=== PATIENT | male | born 1960 | race Two or more races ===

== ENCOUNTER 2017-03-19 20:12 | Inpatient (IN) | payer MEDICARE ==
[~2017-03-19] VITALS: Ht 160 cm; Wt 70.0 kg
[2017-03-19] MEDS ORDERED: ONDANSETRON HCL 4 MG/2 ML VIAL IV ONE (21:30)
[2017-03-19] MEDS ORDERED: SODIUM CHLORIDE 0.9% 1,000 ML IV ONE (21:30)
[2017-03-19] MEDS ORDERED: HYDROmorphone HCL 2 MG/ML VL IV ONE (21:30)
[2017-03-19 22:15] LABS: Basophils # (auto) 0 uL; Basophils % (auto) 0.4 % (0.0-2.0); Eosinophils # (auto) 0.2 uL; Eosinophils % (auto) 2.9 % (0.0-7.0); Hematocrit 33.7 % (41.0-53.0); Hemoglobin 11.3 g/dL (13.5-17.5); Lymphocytes # (auto) 1.4 uL; Lymphocytes % (auto) 19.6 % (10.0-50.0); Mean Corpuscular Hemoglobin 30.3 pg (28.0-32.0); Mean Corpuscular Hgb Conc. 33.5 g/dL (32.0-36.0); Mean Corpuscular Volume 90.6 fL (80.0-100.0); Mean Platelet Volume 7.8 fL (7.4-10.4); Monocytes # (auto) 0.5 uL; Monocytes % (auto) 7.2 % (0.0-12.0); Neutrophils % (auto) 69.9 % (37.0-80.0); Platelet Count (auto) 246 10^3/uL (140-450); Red Cell Distribution Width 13.4 % (11.6-16.0); White Blood Cell 7.1 10^3/uL (4.4-10.8)
[2017-03-19 22:29] LABS: Albumin 3.5 g/dL (3.4-5.0); BUN/Creatinine Ratio 7.2; Bilirubin, Total 0.2 mg/dL (0.2-1.0); Calcium 7.8 mg/dL (8.5-10.1); Potassium 4.3 mmol/L (3.5-5.1); Total Protein 7.6 g/dL (6.4-8.2)
[2017-03-19 22:43] LABS: INR 0.98 (0.9-1.15); Partial Thromboplastin Time 28.1 sec (22.64-33.71); Prothrombin Time 10.7 sec (9.37-12.3)
[2017-03-20] MEDS ORDERED: SODIUM CHLORIDE 0.9% 1,000 ML IV SCH (05:06)
[2017-03-20] MEDS ORDERED: MORPHINE SULF INJ 2 MG/ML SYRINGE 1ML IV PRN (05:15)
[2017-03-20] MEDS ORDERED: ACETAMINOPHEN 325 MG TAB PO PRN (05:15)
[2017-03-20] MEDS ORDERED: ONDANSETRON HCL 4 MG/2 ML VIAL IV PRN (05:15)
[2017-03-20] MEDS: SODIUM CHLOR 0.9% PF (SALINE LOCK) 10ML VIAL IV SCH ×3 (06:04→21:29)
[2017-03-20 06:20] VITALS: BP 154/79
[2017-03-20] MEDS ORDERED: PANT1INJ3 PO (07:42)
[2017-03-20] MEDS ORDERED: FURO80TA3 PO (07:42)
[2017-03-20] MEDS ORDERED: ATOR40TA52 PO (07:42)
[2017-03-20] MEDS ORDERED: ASPI81TA27 PO (07:42)
[2017-03-20] MEDS ORDERED: SEVE800T8 PO (07:42)
[2017-03-20] MEDS ORDERED: INSLISPI SC (07:42)
[2017-03-20] MEDS ORDERED: HYDR-2652 PO (07:42)
[2017-03-20] MEDS ORDERED: NIFE60TA59 PO (07:42)
[2017-03-20] MEDS ORDERED: DEXTROSE (50%) 50ML SYRG IV PRN (07:45)
[2017-03-20 08:00] VITALS: BP 151/71
[2017-03-20 09:00] VITALS: BP_SYST 151; BP_SYST 193; BP_DIAS 71; BP_DIAS 78
[2017-03-20] MEDS: MULTIPLE VITAMIN TAB PO SCH (09:53)
[2017-03-20] MEDS: FAMOTIDINE 20 MG TAB PO SCH ×2 (09:53→21:28)
[2017-03-20] MEDS: InsuLIN REG 1unit/0.01ml Soln (100units/ml) SC SCH ×3 (11:30→21:29)
[2017-03-20] MEDS: ACCU-CHEK COMFORT CURVE STRIP VI SCH ×3 (11:30→21:29)
[2017-03-20 13:00] VITALS: BP 126/59
[2017-03-20 16:02] LABS: Urine Bilirubin Negative (Negative); Urine Blood TRACE /uL (Negative); Urine Color Yellow (Yellow); Urine Hyaline Cast FEW /lpf (0 - 2); Urine Ketone Negative (Negative); Urine Nitrite Negative (Negative); Urine RBC 5 /hpf (0 - 3); Urine Squamous Epithelial Cell FEW /hpf (<5); Urine Urobilinogen Normal (Negative); Urine pH 7.5 (5.0-8.0)
[2017-03-20 16:13] LABS: Urine Glucose 3+ mg/dL (Normal)
[2017-03-20] MEDS: GABAPENTIN 100 MG CAP PO SCH (21:28)
[2017-03-20 22:32] VITALS: BP 172/73
[2017-03-21 05:17] VITALS: BP_SYST 109; BP_SYST 178; BP_DIAS 60; BP_DIAS 79
[2017-03-21 06:04] LABS: Basophils # (auto) 0 uL; Basophils % (auto) 0.5 % (0.0-2.0); Eosinophils # (auto) 0.3 uL; Eosinophils % (auto) 4.1 % (0.0-7.0); Hemoglobin 11.5 g/dL (13.5-17.5); Lymphocytes # (auto) 1.5 uL; Lymphocytes % (auto) 21.6 % (10.0-50.0); Mean Corpuscular Hemoglobin 30.6 pg (28.0-32.0); Mean Corpuscular Hgb Conc. 33.9 g/dL (32.0-36.0); Mean Corpuscular Volume 90.3 fL (80.0-100.0); Mean Platelet Volume 7.7 fL (7.4-10.4); Monocytes # (auto) 0.5 uL; Monocytes % (auto) 6.3 % (0.0-12.0); Neutrophils # (auto) 4.8 uL; Neutrophils % (auto) 67.5 % (37.0-80.0); Platelet Count (auto) 249 10^3/uL (140-450); Red Cell Distribution Width 12.9 % (11.6-16.0); White Blood Cell 7.2 10^3/uL (4.4-10.8)
[2017-03-21] MEDS: InsuLIN REG 1unit/0.01ml Soln (100units/ml) SC SCH ×4 (06:06→21:45)
[2017-03-21] MEDS: ACCU-CHEK COMFORT CURVE STRIP VI SCH ×4 (06:06→21:45)
[2017-03-21] MEDS: GABAPENTIN 100 MG CAP PO SCH (06:07)
[2017-03-21] MEDS: SODIUM CHLOR 0.9% PF (SALINE LOCK) 10ML VIAL IV SCH ×3 (06:07→21:45)
[2017-03-21 06:21] LABS: INR 0.98 (0.9-1.15); Prothrombin Time 10.7 sec (9.37-12.3)
[2017-03-21 06:26] LABS: Albumin 2.9 g/dL (3.4-5.0); Calcium 7.7 mg/dL (8.5-10.1); Magnesium 2.4 mg/dL (1.6-2.6)
[2017-03-21 06:30] LABS: BUN/Creatinine Ratio 7.9
[2017-03-21 06:31] LABS: Bilirubin, Total 0.3 mg/dL (0.2-1.0); Total Protein 6.9 g/dL (6.4-8.2)
[2017-03-21 08:02] VITALS: BP 181/87
[2017-03-21] MEDS: MULTIPLE VITAMIN TAB PO SCH (10:56)
[2017-03-21] MEDS: FAMOTIDINE 20 MG TAB PO SCH (10:56)
[2017-03-21 13:00] VITALS: BP 161/99
[2017-03-21] MEDS ORDERED: hydrALAZINE HCL 25 MG TAB PO ONE (13:15)
[2017-03-21] MEDS ORDERED: NIFEdipine ER 30 MG TAB PO ONE (13:15)
[2017-03-21] MEDS ORDERED: GAB100C PO (13:20)
[2017-03-21 17:00] VITALS: BP 185/84
[2017-03-21] MEDS ORDERED: GABAPENTIN 300 MG CAP PO SCH (18:00)
[2017-03-21 20:00] VITALS: BP 152/78
[2017-03-21 22:00] VITALS: BP 152/78
[2017-03-21] MEDS: hydrALAZINE HCL 25 MG TAB PO SCH (22:02)
[2017-03-22 05:20] VITALS: BP 106/63
[2017-03-22] MEDS: SODIUM CHLOR 0.9% PF (SALINE LOCK) 10ML VIAL IV SCH ×2 (05:54→14:00)
[2017-03-22] MEDS: InsuLIN REG 1unit/0.01ml Soln (100units/ml) SC SCH ×2 (06:43→12:01)
[2017-03-22] MEDS: ACCU-CHEK COMFORT CURVE STRIP VI SCH ×2 (06:43→11:30)
[2017-03-22 08:37] VITALS: BP 124/63
[2017-03-22] MEDS ORDERED: NIFEdipine ER 30 MG TAB PO SCH (10:00)
[2017-03-22] MEDS: MULTIPLE VITAMIN TAB PO SCH (10:00)
[2017-03-22] MEDS ORDERED: FAMOTIDINE 20 MG TAB PO SCH (10:00)
[2017-03-22] MEDS ORDERED: SODIUM CHL 0.9% 1000 ML BAG XX ONE (10:00)
[2017-03-22] MEDS: hydrALAZINE HCL 25 MG TAB PO SCH (10:00)
[2017-03-22 13:06] VITALS: BP 100/63
[2017-03-22 13:28] VITALS: BP 95/54
[2017-03-22 15:34] VITALS: BP 117/75
== END 2017-03-22 16:26 | disposition home or self-care (01) | DRG 102 ==
LOC: ER 20:27 → TELE 20:28 → TELE-WESTW 03-20 06:20
PROVIDERS: ADMIT Emergency Medicine; ATTEND Internal Medicine
DX: G44.89 Other headache syndrome (principal); N18.6 End stage renal disease; I12.0 Hypertensive chronic kidney disease with stage 5 chronic kidney disease or end stage renal disease; E11.40 Type 2 diabetes mellitus with diabetic neuropathy, unspecified; R53.1 Weakness; E78.5 Hyperlipidemia, unspecified; G62.9 Polyneuropathy, unspecified; E11.22 Type 2 diabetes mellitus with diabetic chronic kidney disease; Z99.2 Dependence on renal dialysis; Z79.899 Other long term (current) drug therapy; Y92.89 Other specified places as the place of occurrence of the external cause; Z98.41 Cataract extraction status, right eye; Z98.42 Cataract extraction status, left eye
CPT/HCPCS: 36415; 70450; 70551; 80053; 81001; 82962; 83690; 83735; 85025; 85610; 85730; 87040; 87086; 90935; 93005; 96361; 96374; 96375; J1815; J2405

== ENCOUNTER 2017-03-26 02:35 | Emergency (ER) | payer MEDICARE ==
[~2017-03-26] VITALS: Ht 160 cm; Wt 70.3 kg
[~2017-03-26 02:35] MED LIST: ASPI81TA27 PO; ATOR40TA52 PO; FURO80TA3 PO; GAB100C PO; HYDR-2652 PO; INSLISPI SC; NIFE60TA59 PO; PANT1INJ3 PO; SEVE800T8 PO
[2017-03-26] MEDS ORDERED: HYDROmorphone HCL 2 MG/ML VL IV ONE (03:45)
[2017-03-26] MEDS ORDERED: ONDANSETRON HCL 4 MG/2 ML VIAL IV ONE (03:45)
[2017-03-26 03:48] LABS: Basophils # (auto) 0 uL; Basophils % (auto) 0.2 % (0.0-2.0); Eosinophils # (auto) 0 uL; Eosinophils % (auto) 0.3 % (0.0-7.0); Hematocrit 33.5 % (41.0-53.0); Hemoglobin 11.3 g/dL (13.5-17.5); Lymphocytes # (auto) 1.3 uL; Lymphocytes % (auto) 15.2 % (10.0-50.0); Mean Corpuscular Hemoglobin 30.4 pg (28.0-32.0); Mean Corpuscular Hgb Conc. 33.7 g/dL (32.0-36.0); Mean Corpuscular Volume 90.2 fL (80.0-100.0); Mean Platelet Volume 7.7 fL (7.4-10.4); Monocytes # (auto) 0.3 uL; Monocytes % (auto) 3.5 % (0.0-12.0); Neutrophils # (auto) 6.7 uL; Neutrophils % (auto) 80.8 % (37.0-80.0); Platelet Count (auto) 257 10^3/uL (140-450); Red Cell Distribution Width 13.6 % (11.6-16.0); White Blood Cell 8.3 10^3/uL (4.4-10.8)
[2017-03-26 04:18] LABS: Albumin 3.8 g/dL (3.4-5.0); BUN/Creatinine Ratio 6.7; Bilirubin, Total 0.3 mg/dL (0.2-1.0); Calcium 8.2 mg/dL (8.5-10.1); Potassium 3.7 mmol/L (3.5-5.1); Total Protein 8.3 g/dL (6.4-8.2)
[2017-03-26 10:19] VITALS: BP 137/74
== END 2017-03-26 12:05 | disposition home or self-care (01) ==
LOC: ER 02:36
DX: E11.319 Type 2 diabetes mellitus with unspecified diabetic retinopathy without macular edema (principal); E11.22 Type 2 diabetes mellitus with diabetic chronic kidney disease; I12.0 Hypertensive chronic kidney disease with stage 5 chronic kidney disease or end stage renal disease; N18.6 End stage renal disease; Z79.899 Other long term (current) drug therapy; Z79.82 Long term (current) use of aspirin; Z79.4 Long term (current) use of insulin; R51 Headache
CPT/HCPCS: 36415; 70450; 70480; 80053; 85025; 93005; 96374; 96375; 99285; J1170; J2405

== ENCOUNTER 2017-05-21 10:40 | Emergency (ER) | payer MEDICARE, MEDICAID ==
[~2017-05-21] VITALS: Ht 165.1 cm; Wt 70.3 kg
[2017-05-21 11:38] LABS: Basophils # (auto) 0 uL; Basophils % (auto) 0.3 % (0.0-2.0); CONDITION Y; Eosinophils # (auto) 0.1 uL; Hematocrit 38.9 % (41.0-53.0); Lymphocytes # (auto) 1.4 uL; Lymphocytes % (auto) 19.9 % (10.0-50.0); Mean Corpuscular Hemoglobin 31.7 pg (28.0-32.0); Mean Corpuscular Hgb Conc. 33.4 g/dL (32.0-36.0); Mean Platelet Volume 7.7 fL (7.4-10.4); Monocytes # (auto) 0.5 uL; Monocytes % (auto) 6.7 % (0.0-12.0); Neutrophils # (auto) 4.8 uL; Neutrophils % (auto) 71.1 % (37.0-80.0); Platelet Count (auto) 337 10^3/uL (140-450); Red Cell Distribution Width 16.2 % (11.6-16.0); White Blood Cell 6.8 10^3/uL (4.4-10.8)
[2017-05-21] MEDS ORDERED: ONDANSETRON HCL 4 MG/2 ML VIAL IV ONE (12:00)
[2017-05-21] MEDS ORDERED: HYDROmorphone HCL 2 MG/ML VL IV ONE (12:00)
[2017-05-21 12:11] LABS: Albumin 3.6 g/dL (3.4-5.0); Alkaline Phosphatase 104 U/L (45-117); Anion Gap 10 (5-15); Aspartate Aminotransferase 13 U/L (15-37); BUN/Creatinine Ratio 6.3; Bilirubin, Total 0.3 mg/dL (0.2-1.0); Blood Urea Nitrogen 39 mg/dL (7-18); Calcium 8.6 mg/dL (8.5-10.1); Carbon Dioxide 31 mmol/L (21-32); Chloride 98 mmol/L (98-107); GFR African American 12 mL/min; GFR Non-African American 10 mL/min; Glucose 131 mg/dL (74-106); Potassium 4.3 mmol/L (3.5-5.1); Sodium 139 mmol/L (136-145); Total Protein 7.8 g/dL (6.4-8.2)
[2017-05-21] MEDS ORDERED: LACTULOSE 20Gm/30ML SOLN PO ONE (12:45)
[2017-05-21 14:08] VITALS: BP 115/60
== END 2017-05-21 14:16 | disposition home or self-care (01) ==
LOC: ER 10:40
DX: S16.1XXA Strain of muscle, fascia and tendon at neck level, initial encounter (principal); I12.0 Hypertensive chronic kidney disease with stage 5 chronic kidney disease or end stage renal disease; E11.22 Type 2 diabetes mellitus with diabetic chronic kidney disease; N18.6 End stage renal disease; Z79.4 Long term (current) use of insulin; Z99.2 Dependence on renal dialysis; X58.XXXA Exposure to other specified factors, initial encounter; Y93.89 Activity, other specified; Y99.8 Other external cause status; Y92.89 Other specified places as the place of occurrence of the external cause
CPT/HCPCS: 36415; 80053; 82140; 84484; 85025; 96374; 96375; 99284; J1170; J2405

== ENCOUNTER 2017-12-18 03:19 | Emergency (ER) | payer MEDICARE, MEDICAID ==
[~2017-12-18] VITALS: Ht 160 cm; Wt 68.0 kg
[~2017-12-18 03:19] MED LIST changes: -HYDR-2652 PO; +HYDR50TA15 PO
[2017-12-18 04:24] LABS: Basophils # (auto) 0.1 uL; Basophils % (auto) 1.1 % (0.0-2.0); Eosinophils # (auto) 0.3 uL; Eosinophils % (auto) 4.1 % (0.0-7.0); Hematocrit 39.7 % (41.0-53.0); Hemoglobin 13.4 g/dL (13.5-17.5); Lymphocytes # (auto) 0.7 uL; Mean Corpuscular Hemoglobin 31.2 pg (28.0-32.0); Mean Corpuscular Hgb Conc. 33.8 g/dL (32.0-36.0); Mean Corpuscular Volume 92.3 fL (80.0-100.0); Monocytes # (auto) 0.4 uL; Monocytes % (auto) 5.7 % (0.0-12.0); Neutrophils # (auto) 6.2 uL; Neutrophils % (auto) 80.1 % (37.0-80.0); Nucleated Red Blood Cells % 0.1 %; Platelet Count (auto) 200 10^3/uL (140-450); White Blood Cell 7.7 10^3/uL (4.4-10.8)
[2017-12-18 04:35] LABS: Albumin 3.7 g/dL (3.4-5.0); BUN/Creatinine Ratio 7.6; Bilirubin, Total 0.3 mg/dL (0.2-1.0); Calcium 8.7 mg/dL (8.5-10.1); Potassium 4.9 mmol/L (3.5-5.1); Total Protein 8.5 g/dL (6.4-8.2)
[2017-12-18] MEDS ORDERED: SODIUM CHLORIDE 0.9% 1,000 ML IV ONE (07:54)
[2017-12-18] MEDS ORDERED: MORPHINE SULF INJ 2 MG/ML SYRINGE 1ML IV PRN (08:00)
[2017-12-18] MEDS ORDERED: ONDANSETRON HCL 4 MG/2 ML VIAL IV ONE (08:00)
[2017-12-18] MEDS ORDERED: MORPHINE SULFATE 4 MG/ML SYR/VIAL IV PRN (08:15)
[2017-12-18 11:50] VITALS: BP 153/89
== END 2017-12-18 11:54 | disposition home or self-care (01) ==
LOC: ER 03:19
DX: J40 Bronchitis, not specified as acute or chronic (principal); J11.1 Influenza due to unidentified influenza virus with other respiratory manifestations; M79.1 Myalgia; I12.0 Hypertensive chronic kidney disease with stage 5 chronic kidney disease or end stage renal disease; N18.6 End stage renal disease; E11.22 Type 2 diabetes mellitus with diabetic chronic kidney disease; Z99.2 Dependence on renal dialysis
CPT/HCPCS: 36415; 71046; 80053; 83735; 84443; 85025; 87804; 93005; 96361; 96374; 96375; 99285; J2270; J2405; J7030

== ENCOUNTER 2018-11-01 12:23 | Inpatient (IN) | payer OTHER, MEDICAID ==
[~2018-11-01] VITALS: Ht 160 cm; Wt 74.6 kg
[2018-11-01] MEDS ORDERED: MORPHINE SULFATE 10 MG/ML INJ 1ML SDV IV ONE (14:15)
[2018-11-01] MEDS ORDERED: cefTRIAXone 1GM/50ML D5W 50 ML IV ONE (14:15)
[2018-11-01] MEDS ORDERED: ONDANSETRON HCL 4 MG/2 ML VIAL IV ONE (14:15)
[2018-11-01] MEDS ORDERED: ASPirin-EC 81 mg tab PO ONE (14:15)
[2018-11-01 14:27] LABS: Basophils # (auto) 0 uL; Basophils % (auto) 0.4 % (0.0-2.0); Eosinophils # (auto) 0 uL; Eosinophils % (auto) 0.4 % (0.0-7.0); Hematocrit 35.4 % (41.0-53.0); Lymphocytes # (auto) 0.7 uL; Lymphocytes % (auto) 8.6 % (10.0-50.0); Mean Corpuscular Hemoglobin 31.1 pg (28.0-32.0); Mean Corpuscular Hgb Conc. 33.9 g/dL (32.0-36.0); Mean Corpuscular Volume 91.9 fL (80.0-100.0); Monocytes # (auto) 0.5 uL; Neutrophils # (auto) 6.4 uL; Neutrophils % (auto) 84.6 % (37.0-80.0); Nucleated Red Blood Cells % 0.1 %; Platelet Count (auto) 290 10^3/uL (140-450); Red Blood Cells 3.85 10^6/uL (4.5-5.90); Red Cell Distribution Width 15.4 % (11.8-14.3); White Blood Cell 7.6 10^3/uL (4.4-10.8)
[2018-11-01 14:51] LABS: Albumin 3.2 g/dL (3.4-5.0); Calcium 8.3 mg/dL (8.5-10.1); Magnesium 2.6 mg/dL (1.6-2.6); Potassium 4.2 mmol/L (3.5-5.1)
[2018-11-01 14:58] LABS: BUN/Creatinine Ratio 7.2; Bilirubin, Total 0.5 mg/dL (0.2-1.0); Total Protein 7.8 g/dL (6.4-8.2)
[2018-11-01] MEDS ORDERED: MORPHINE SULFATE 10 MG/ML INJ 1ML SDV IV PRN ×2 (15:15)
[2018-11-01] MEDS ORDERED: ALBUTEROL SULF 2.5 MG/0.5ML(0.5%) NEB SOLN NEB PRN (15:15)
[2018-11-01] MEDS ORDERED: NITROGLYCERIN 0.4 MG SL TAB SL PRN (15:15)
[2018-11-01] MEDS ORDERED: LACTULOSE 20Gm/30ML SOLN PO PRN (15:15)
[2018-11-01] MEDS ORDERED: HYDROcodone-ACET 5/325MG TAB PO PRN (15:15)
[2018-11-01] MEDS ORDERED: TEMAZEPAM 15 MG CAP PO PRN (15:15)
[2018-11-01] MEDS ORDERED: PROMETHAZINE HCL 25 MG/ML 1ML IV PRN (15:15)
[2018-11-01] MEDS ORDERED: DEXTROSE (50%) 50ML SYRG IV PRN (15:15)
[2018-11-01] MEDS ORDERED: ENOXAPARIN SOD 80 MG/0.8ML SYRINGE SC SCH (15:15)
[2018-11-01] MEDS ORDERED: OSELTAMIVIR 30 MG CAP PO ONE (15:15)
[2018-11-01] MEDS ORDERED: LORazepam 0.5 MG TAB PO PRN (15:15)
[2018-11-01] MEDS ORDERED: ACETAMINOPHEN 500 MG TAB PO PRN (15:15)
[2018-11-01] MEDS ORDERED: ENOXAPARIN SOD 30 MG/0.3 ML SYRINGE SC ONE (15:30)
[2018-11-01 15:44] LABS: INR 0.97 (0.9-1.15); Partial Thromboplastin Time 28.5 sec (23.78-33.04); Prothrombin Time 10.4 sec (9.27-12.13)
[2018-11-01] MEDS: AZITHROMYCIN 500MG/ 250ML 250 ML IV SCH (15:45)
[2018-11-01] MEDS ORDERED: ENOXAPARIN SOD 80 MG/0.8ML SYRINGE SC ONE (15:45)
[2018-11-01 16:06] VITALS: BP 160/83
[2018-11-01] MEDS ORDERED: PATIENTS OWN MEDICATION (Sevelamer Carbonate (Renvela) 1 TAB) PO SCH (17:00)
[2018-11-01] MEDS: InsuLIN REG 1unit/0.01ml Soln (100units/ml) SC SCH ×2 (17:00→21:53)
[2018-11-01] MEDS: ACCU-CHEK COMFORT CURVE STRIP VI SCH ×2 (17:23→21:53)
[2018-11-01] MEDS: FUROSEMIDE 40 MG TAB PO SCH (17:44)
[2018-11-01] MEDS: ALBUTEROL SULF 2.5 MG/0.5ML(0.5%) NEB SOLN NEB SCH ×2 (18:08→23:59)
[2018-11-01] MEDS: hydrALAZINE HCL 25 MG TAB PO SCH (21:52)
[2018-11-01] MEDS: ATORVASTATIN 20 MG TAB PO SCH (21:52)
[2018-11-01] MEDS: GABAPENTIN 100 MG CAP PO SCH (21:53)
[2018-11-01] MEDS: SODIUM CHLOR 0.9% PF (SALINE LOCK) 10ML VIAL/SYR IV SCH (22:00)
[2018-11-01] MEDS ORDERED: METOPROLOL TARTRATE 25 MG TAB PO SCH (22:00)
[2018-11-02] MEDS: FUROSEMIDE 40 MG TAB PO SCH ×2 (06:00→17:10)
[2018-11-02] MEDS: ALBUTEROL SULF 2.5 MG/0.5ML(0.5%) NEB SOLN NEB SCH ×3 (06:00→19:38)
[2018-11-02] MEDS: SODIUM CHLOR 0.9% PF (SALINE LOCK) 10ML VIAL/SYR IV SCH ×3 (06:00→21:30)
[2018-11-02 07:12] LABS: Cholesterol 166 mg/dL (< 200); HDL Cholesterol 43 mg/dL (40-59); LDL Cholesterol 111 mg/dL (< 100); Triglycerides 104 mg/dL (< 150)
[2018-11-02] MEDS: ACCU-CHEK COMFORT CURVE STRIP VI SCH ×4 (07:50→21:48)
[2018-11-02] MEDS: InsuLIN REG 1unit/0.01ml Soln (100units/ml) SC SCH ×4 (07:56→22:11)
[2018-11-02] MEDS ORDERED: ASPirin-EC 81 mg tab PO SCH (10:00)
[2018-11-02] MEDS ORDERED: NITROGLYCERIN 0.2MG/HR TOPICAL PATCH TD SCH (10:00)
[2018-11-02] MEDS ORDERED: ENOXAPARIN SOD 30 MG/0.3 ML SYRINGE SC SCH (10:00)
[2018-11-02] MEDS: ASPirin 81 mg TAB PO SCH (10:00)
[2018-11-02] MEDS ORDERED: ENOXAPARIN SOD 80 MG/0.8ML SYRINGE SC SCH (10:00)
[2018-11-02] MEDS: METOPROLOL SUCCINATE XL 50 MG TAB PO SCH (10:00)
[2018-11-02] MEDS ORDERED: ENALAPRIL MALEATE 10 MG TAB PO SCH (10:00)
[2018-11-02] MEDS ORDERED: NIFEdipine ER 30 MG TAB PO SCH (10:00)
[2018-11-02] MEDS ORDERED: CLOP75TA41 PO (11:20)
[2018-11-02] MEDS ORDERED: NIFE90TA30 PO (11:20)
[2018-11-02] MEDS ORDERED: CALC667T2 PO (11:20)
[2018-11-02] MEDS ORDERED: SEVE800T8 PO (11:20)
[2018-11-02] MEDS ORDERED: LISI-646 PO (11:20)
[2018-11-02] MEDS ORDERED: CAR125T PO (11:20)
[2018-11-02] MEDS ORDERED: LIDOCAINE 2%HCL (LOCAL ANESTH.) INJ 20ML MDV ONE (12:13)
[2018-11-02] MEDS ORDERED: IODIXANOL 320MG/ML 100ML BTL IV ONE (12:13)
[2018-11-02] MEDS ORDERED: fentaNYL CITRATE 100 MCG/2 ML VL ONE (12:14)
[2018-11-02] MEDS ORDERED: MIDAZOLAM HCL 1MG/1ML-2 ML VIAL ONE (12:14)
[2018-11-02] MEDS ORDERED: ANGIOMAX 250 MG VIAL IV ONE (12:14)
[2018-11-02] MEDS ORDERED: SODIUM CHL 0.9% 50 ML ONE (12:15)
[2018-11-02] MEDS ORDERED: CLOPIDOGREL BISULFATE 75 MG TAB ONE (12:55)
[2018-11-02] MEDS ORDERED: ASPirin 81 mg TAB ONE (12:55)
[2018-11-02] MEDS ORDERED: ZOLPIDEM TARTRATE 5 MG TAB PO PRN (13:45)
[2018-11-02] MEDS ORDERED: ONDANSETRON HCL 4 MG/2 ML VIAL IV PRN (13:45)
[2018-11-02] MEDS ORDERED: ACETAMINOPHEN 500 MG TAB PO PRN (13:45)
[2018-11-02] MEDS: PANTOPRAZOLE 40 MG TAB PO SCH (15:18)
[2018-11-02] MEDS: cefTRIAXone 1GM/50ML D5W 50 ML IV SCH (15:18)
[2018-11-02] MEDS: hydrALAZINE HCL 25 MG TAB PO SCH ×2 (15:18→21:48)
[2018-11-02] MEDS: ISOSORBIDE MONONITRATE 60 MG TAB PO SCH (15:19)
[2018-11-02 16:45] VITALS: BP 134/74
--- NOTE | 2018-11-02 16:45 | NUR ---
Telemetry admit from COMMER[employer] ATTORNEY LAURIE CRUMP admitted to Telemetry unit after SBAR received. Patient oriented to Luz Alicia, primary RN, and student mimi Branham, to unit, room, bed, and unit policies regarding patient care and visiting hours. Patient now on continuous telemetry monitoring, tele box # 25 and telemetry reading on arrival to unit is sr 71bpm. Patient placed on bedside oxygen, weighed by bedscale and encouraged to call if they need something. All questions and concerns addressed, patient verbalized understanding. Family at bedside. Note:
[2018-11-02] MEDS: AZITHROMYCIN 500MG/ 250ML 250 ML IV SCH (16:59)
[2018-11-02 17:00] VITALS: BP 134/74
[2018-11-02] MEDS: SEVELAMER 800 MG TAB PO SCH (17:10)
--- NOTE | 2018-11-02 20:00 | NUR ---
Opening Shift Note Assumed care of patient, awake and alert in the toilet brushing his teeth. No S/S of distress/SOB or pain. Instructed on POC and to call for assist PRN, will continue to monitor for changes Q1hr and PRN.
[2018-11-02] MEDS: ATORVASTATIN 20 MG TAB PO SCH (21:30)
[2018-11-02 22:00] VITALS: BP 140/72
[2018-11-02] MEDS ORDERED: CALCIUM ACETATE PO SCH (22:00)
[2018-11-02] MEDS ORDERED: OSELTAMIVIR 30 MG CAP PO SCH (22:00)
[2018-11-03] MEDS: ALBUTEROL SULF 2.5 MG/0.5ML(0.5%) NEB SOLN NEB SCH ×4 (00:28→18:44)
[2018-11-03 05:00] VITALS: BP 140/71
[2018-11-03] MEDS: FUROSEMIDE 40 MG TAB PO SCH ×2 (05:42→18:11)
[2018-11-03] MEDS: SODIUM CHLOR 0.9% PF (SALINE LOCK) 10ML VIAL/SYR IV SCH ×3 (05:42→22:15)
[2018-11-03 06:03] LABS: Basophils # (auto) 0 uL; Basophils % (auto) 0.8 % (0.0-2.0); Eosinophils # (auto) 0.2 uL; Eosinophils % (auto) 3.3 % (0.0-7.0); Hematocrit 30.2 % (41.0-53.0); Lymphocytes # (auto) 1.4 uL; Lymphocytes % (auto) 21.3 % (10.0-50.0); Mean Corpuscular Hemoglobin 30.4 pg (28.0-32.0); Monocytes # (auto) 0.6 uL; Monocytes % (auto) 9.2 % (0.0-12.0); Neutrophils # (auto) 4.3 uL; Neutrophils % (auto) 65.4 % (37.0-80.0); Platelet Count (auto) 274 10^3/uL (140-450); Red Blood Cells 3.29 10^6/uL (4.5-5.90); Red Cell Distribution Width 15.2 % (11.8-14.3); White Blood Cell 6.6 10^3/uL (4.4-10.8)
[2018-11-03] MEDS: InsuLIN REG 1unit/0.01ml Soln (100units/ml) SC SCH ×4 (06:17→22:15)
[2018-11-03] MEDS: ACCU-CHEK COMFORT CURVE STRIP VI SCH ×4 (06:17→22:18)
[2018-11-03 06:34] LABS: Calcium 7.6 mg/dL (8.5-10.1); Magnesium 2.9 mg/dL (1.6-2.6); Potassium 5.5 mmol/L (3.5-5.1)
[2018-11-03 06:41] LABS: BUN/Creatinine Ratio 7.3
--- NOTE | 2018-11-03 06:48 | NUR ---
Dressing in the right groin dry and intact, no blood stain noted.
--- NOTE | 2018-11-03 07:32 | NUR ---
Report given to Bora Finley to assume care.
--- NOTE | 2018-11-03 07:40 | NUR ---
Opening Shift Note Assumed care of patient, awake and alert. No S/S of distress/SOB or pain. Instructed on POC-for hemodialysis today, continue IV antibiotics. Patient informed to call for assist PRN, will continue to monitor for changes Q1hr and PRN.
[2018-11-03] MEDS: SEVELAMER 800 MG TAB PO SCH ×3 (08:25→18:10)
[2018-11-03 09:00] VITALS: BP 140/70
--- NOTE | 2018-11-03 09:30 | NUR ---
Patient is awaiting hemodialysis today, will give daily IV antibiotic and oral meds post hemodialysis today. Continue to monitor patient.
[2018-11-03] MEDS ORDERED: SODIUM CHL 0.9% 1000 ML BAG XX ONE (09:45)
--- NOTE | 2018-11-03 11:10 | NUR ---
Called [facility], asked if patient is on the list for hemodialysis today, per staff, patient is on the list today but she can't give me the time for the dialysis.
--- NOTE | 2018-11-03 12:21 | NUR ---
Hemodialysis started at bedside.
--- NOTE | 2018-11-03 15:40 | NUR ---
Hemodialysis ended, 3 L off per HD RN. Continue to monitor patient.
[2018-11-03] MEDS: PANTOPRAZOLE 40 MG TAB PO SCH (15:50)
[2018-11-03] MEDS: ASPirin 81 mg TAB PO SCH (15:50)
[2018-11-03] MEDS: cefTRIAXone 1GM/50ML D5W 50 ML IV SCH (15:50)
[2018-11-03] MEDS: CLOPIDOGREL BISULFATE 75 MG TAB PO SCH (15:50)
[2018-11-03] MEDS: AZITHROMYCIN 500MG/ 250ML 250 ML IV SCH (15:51)
[2018-11-03] MEDS: METOPROLOL SUCCINATE XL 50 MG TAB PO SCH (18:11)
[2018-11-03] MEDS: hydrALAZINE HCL 25 MG TAB PO SCH ×2 (18:12→22:16)
[2018-11-03] MEDS: NIFEdipine ER 30 MG TAB PO SCH (18:13)
[2018-11-03] MEDS: ISOSORBIDE MONONITRATE 60 MG TAB PO SCH (18:13)
[2018-11-03] MEDS: LISINOPRIL 20 MG TAB PO SCH (18:14)
--- NOTE | 2018-11-03 19:00 | NUR ---
Closing Note Patient is resting in bed, no complaints of pain. Call light within reach and bed in lowest position. Care endorsed to night RN.
--- NOTE | 2018-11-03 20:05 | NUR ---
open note assumed care of pt. upon entering room pt awake and alert. reported having headache, requests tylenol, will administer medication per MD order. no further s/s distress noted or expressed. pt updated on plan of care. call light in reach, bed locked and in lowest position. will continue to monitor.
[2018-11-03 22:00] VITALS: BP 126/69
[2018-11-03] MEDS: ATORVASTATIN 20 MG TAB PO SCH (22:15)
[2018-11-03] MEDS: GABAPENTIN 100 MG CAP PO SCH (22:15)
[2018-11-04] MEDS: ALBUTEROL SULF 2.5 MG/0.5ML(0.5%) NEB SOLN NEB SCH ×3 (00:19→11:16)
[2018-11-04 05:03] VITALS: BP 92/51
[2018-11-04] MEDS: FUROSEMIDE 40 MG TAB PO SCH ×2 (06:00→18:00)
[2018-11-04] MEDS: SODIUM CHLOR 0.9% PF (SALINE LOCK) 10ML VIAL/SYR IV SCH ×2 (06:18→14:40)
[2018-11-04] MEDS: InsuLIN REG 1unit/0.01ml Soln (100units/ml) SC SCH ×3 (06:26→17:00)
[2018-11-04] MEDS: ACCU-CHEK COMFORT CURVE STRIP VI SCH ×3 (06:26→17:00)
[2018-11-04 06:27] LABS: BUN/Creatinine Ratio 5.7; Calcium 7.7 mg/dL (8.5-10.1); Potassium 4.8 mmol/L (3.5-5.1)
--- NOTE | 2018-11-04 07:20 | NUR ---
Opening Shift Note Assumed care of patient, awake and alert. No S/S of distress/SOB or pain. Instructed on POC-continue IV antibiotics, monitor vital signs, blood sugar level. Patient informed to call for assist PRN, will continue to monitor for changes Q1hr and PRN.
[2018-11-04] MEDS: SEVELAMER 800 MG TAB PO SCH ×3 (08:14→18:00)
[2018-11-04 08:35] VITALS: BP 104/55
[2018-11-04] MEDS: cefTRIAXone 1GM/50ML D5W 50 ML IV SCH (09:14)
[2018-11-04] MEDS: NIFEdipine ER 30 MG TAB PO SCH (10:00)
[2018-11-04] MEDS: LISINOPRIL 20 MG TAB PO SCH (10:00)
[2018-11-04] MEDS: hydrALAZINE HCL 25 MG TAB PO SCH (10:00)
[2018-11-04] MEDS: ISOSORBIDE MONONITRATE 60 MG TAB PO SCH (10:00)
--- NOTE | 2018-11-04 10:00 | NUR ---
PT REPORTS THAT HE WALKS FINE AND DOES NOT NEED P.T.
[2018-11-04] MEDS: AZITHROMYCIN 500MG/ 250ML 250 ML IV SCH (10:04)
[2018-11-04] MEDS: PANTOPRAZOLE 40 MG TAB PO SCH (10:05)
[2018-11-04] MEDS: CLOPIDOGREL BISULFATE 75 MG TAB PO SCH (10:05)
[2018-11-04] MEDS: ASPirin 81 mg TAB PO SCH (10:05)
[2018-11-04] MEDS: METOPROLOL SUCCINATE XL 50 MG TAB PO SCH (10:06)
[2018-11-04 14:03] VITALS: BP 106/74
--- NOTE | 2018-11-04 15:00 | NUR ---
Dr. Bolanos informed on rounds regarding critical Troponin-4.050. Per Dr. Bolanos if it is trending down, patient can go home.
[2018-11-04] MEDS ORDERED: ISOS30TA4 PO (15:08)
[2018-11-04] MEDS ORDERED: LEVO500T21 PO (15:08)
[2018-11-04 16:57] VITALS: BP 100/73
[2018-11-04 17:50] VITALS: BP 100/73
--- NOTE | 2018-11-04 18:25 | NUR ---
Discharge Discharge instructions given as ordered. Encourage to follow up with PMD and with Dr. Chand, the Pit Manager as instructed. All questions and concerns addressed. Patient verbalized understanding. Patient is up-to-date with the flu and pneumonia vaccines. IV removed with catheter intact, pressure dressing applied. Telemetry unit returned to [facility]. Patient refused to be taken to vehicle via wheelchair. He went with all personal belongings, accompanied by family member. No distress noted at time of departure.
[2018-11-05] MEDS ORDERED: GABAPENTIN 100 MG CAP PO SCH (10:00)
== END 2018-11-04 18:25 | disposition home or self-care (01) | DRG 246 ==
LOC: ER 12:26 → OVERFLOW 15:12 → TELE-WESTW 11-02 16:51
PROVIDERS: ADMIT Internal Medicine; ATTEND Internal Medicine
PROC: 027036Z Dilation of Coronary Artery, One Artery with Three Drug-eluting Intraluminal Devices, Percutaneous Approach (ICD-10-PCS; 2018-11-02)
PROC: 02703ZZ Dilation of Coronary Artery, One Artery, Percutaneous Approach (ICD-10-PCS; 2018-11-02)
PROC: 4A023N7 Measurement of Cardiac Sampling and Pressure, Left Heart, Percutaneous Approach (ICD-10-PCS; 2018-11-02)
PROC: B2111ZZ Fluoroscopy of Multiple Coronary Arteries using Low Osmolar Contrast (ICD-10-PCS; 2018-11-02)
PROC: B2151ZZ Fluoroscopy of Left Heart using Low Osmolar Contrast (ICD-10-PCS; 2018-11-02)
PROC: 5A1D70Z Performance of Urinary Filtration, Intermittent, Less than 6 Hours Per Day (ICD-10-PCS; principal; 2018-11-03)
DX: I21.4 Non-ST elevation (NSTEMI) myocardial infarction (principal); J18.1 Lobar pneumonia, unspecified organism; N18.6 End stage renal disease; I50.43 Acute on chronic combined systolic (congestive) and diastolic (congestive) heart failure; I13.2 Hypertensive heart and chronic kidney disease with heart failure and with stage 5 chronic kidney disease, or end stage renal disease; N25.81 Secondary hyperparathyroidism of renal origin; D63.8 Anemia in other chronic diseases classified elsewhere; E78.5 Hyperlipidemia, unspecified; E66.9 Obesity, unspecified; E11.42 Type 2 diabetes mellitus with diabetic polyneuropathy; E11.22 Type 2 diabetes mellitus with diabetic chronic kidney disease; I25.2 Old myocardial infarction; Z76.82 Awaiting organ transplant status; Z82.49 Family history of ischemic heart disease and other diseases of the circulatory system; Z95.5 Presence of coronary angioplasty implant and graft; Z99.2 Dependence on renal dialysis; Z98.49 Cataract extraction status, unspecified eye; Z79.82 Long term (current) use of aspirin; Z79.899 Other long term (current) drug therapy; Z68.29 Body mass index [BMI] 29.0-29.9, adult
CPT/HCPCS: 36415; 71046; 80048; 80053; 80061; 82962; 83036; 83605; 83735; 83880; 84443; 84484; 85025; 85610; 85730; 86850; 86900; 86901; 87040; 87081; 87804; 90935; 93005; 93306; 93971; 94640; 96365; 96372; 96375; 99152; A6257; C1874; G0378; J0696; J1815; J2250; J2405; Q9967

== ENCOUNTER 2019-01-29 22:51 | Inpatient (IN) | payer MEDICARE, OTHER ==
[~2019-01-29] VITALS: Ht 160 cm; Wt 68.0 kg
[~2019-01-29 22:51] MED LIST changes: -ASPI81TA27 PO; +CALC667T2 PO; +CAR125T PO; +CLOP75TA41 PO; -NIFE60TA59 PO; +NIFE90TA30 PO
[2019-01-30 00:32] LABS: Basophils # (auto) 0 uL; Basophils % (auto) 0.9 % (0.0-2.0); Eosinophils # (auto) 0.2 uL; Eosinophils % (auto) 3.4 % (0.0-7.0); Hematocrit 39.3 % (41.0-53.0); Hemoglobin 13.4 g/dL (13.5-17.5); Lymphocytes # (auto) 1.3 uL; Lymphocytes % (auto) 29.7 % (10.0-50.0); Mean Corpuscular Hemoglobin 31.5 pg (28.0-32.0); Mean Corpuscular Volume 92.4 fL (80.0-100.0); Monocytes # (auto) 0.4 uL; Neutrophils # (auto) 2.5 uL; Nucleated Red Blood Cells % 0.1 %; Platelet Count (auto) 270 10^3/uL (140-450); Red Blood Cells 4.25 10^6/uL (4.5-5.90); Red Cell Distribution Width 15.8 % (11.8-14.3); White Blood Cell 4.5 10^3/uL (4.4-10.8)
[2019-01-30 00:43] LABS: INR 1.02 (0.9-1.15); Prothrombin Time 10.9 sec (9.27-12.13)
[2019-01-30 00:47] LABS: Albumin 3.7 g/dL (3.4-5.0); BUN/Creatinine Ratio 6.5; Magnesium 2.4 mg/dL (1.6-2.6); Potassium 4.6 mmol/L (3.5-5.1)
[2019-01-30 00:52] LABS: Bilirubin, Total 0.3 mg/dL (0.2-1.0); Total Protein 7.6 g/dL (6.4-8.2)
[2019-01-30] MEDS ORDERED: ONDANSETRON HCL 4 MG/2 ML VIAL IV ONE (07:15)
[2019-01-30] MEDS ORDERED: MORPHINE SULFATE 4 MG/ML SYR/VIAL IV ONE (07:15)
[2019-01-30] MEDS ORDERED: HYDROcodone-ACET 5/325MG TAB PO PRN (08:15)
[2019-01-30] MEDS ORDERED: ONDANSETRON HCL 4 MG/2 ML VIAL IV PRN (08:15)
[2019-01-30] MEDS ORDERED: MORPHINE SULF INJ 2 MG/ML SYRINGE 1ML IV PRN (08:15)
[2019-01-30] MEDS ORDERED: DEXTROSE (50%) 50ML SYRG IV PRN (08:30)
[2019-01-30] MEDS: CARVEDILOL 3.125 MG TAB PO SCH ×2 (08:45→21:50)
[2019-01-30] MEDS: APIXABAN 2.5 MG TAB PO SCH ×2 (08:46→21:50)
[2019-01-30] MEDS: CLOPIDOGREL BISULFATE 75 MG TAB PO SCH (08:46)
[2019-01-30] MEDS: PANTOPRAZOLE 40 MG TAB PO SCH (08:46)
[2019-01-30] MEDS: LISINOPRIL 20 MG TAB PO SCH (08:46)
[2019-01-30] MEDS: ACCU-CHEK COMFORT CURVE STRIP VI SCH ×3 (11:38→22:07)
[2019-01-30] MEDS: InsuLIN REG 1unit/0.01ml Soln (100units/ml) SC SCH ×3 (11:47→22:08)
[2019-01-30] MEDS: SEVELAMER 800 MG TAB PO SCH ×2 (11:50→18:19)
[2019-01-30] MEDS: CALCIUM ACETATE 667 MG CAP PO SCH ×2 (11:50→18:19)
[2019-01-30] MEDS: hydrALAZINE HCL 25 MG TAB PO PRN (15:16)
[2019-01-30 21:00] VITALS: BP 149/87
[2019-01-30] MEDS ORDERED: ATO40T PO (21:16)
[2019-01-30] MEDS ORDERED: PANT40TA2 PO (21:16)
[2019-01-30] MEDS ORDERED: HYDR50TA15 PO (21:16)
[2019-01-30] MEDS ORDERED: LISI-646 PO (21:16)
[2019-01-30] MEDS ORDERED: APIX2.5T PO (21:16)
[2019-01-30] MEDS ORDERED: CARV12.544 PO (21:16)
[2019-01-30] MEDS ORDERED: NIFE90TA30 PO (21:16)
[2019-01-30] MEDS ORDERED: ISOS30TA4 PO (21:16)
[2019-01-30] MEDS ORDERED: CLOP75TA28 PO (21:16)
[2019-01-30] MEDS ORDERED: FURO80TA PO (21:16)
[2019-01-30] MEDS ORDERED: SEVE800T8 PO (21:16)
[2019-01-30] MEDS: ATORVASTATIN 20 MG TAB PO SCH (21:50)
[2019-01-30 22:00] VITALS: BP 149/87
[2019-01-31 05:00] VITALS: BP 161/77
[2019-01-31 06:34] LABS: Basophils # (auto) 0 uL; Basophils % (auto) 0.7 % (0.0-2.0); Eosinophils # (auto) 0.2 uL; Eosinophils % (auto) 3.1 % (0.0-7.0); Hematocrit 37.7 % (41.0-53.0); Hemoglobin 12.7 g/dL (13.5-17.5); Lymphocytes # (auto) 1.4 uL; Lymphocytes % (auto) 26.1 % (10.0-50.0); Mean Corpuscular Hemoglobin 30.9 pg (28.0-32.0); Mean Corpuscular Hgb Conc. 33.6 g/dL (32.0-36.0); Monocytes # (auto) 0.5 uL; Monocytes % (auto) 9.4 % (0.0-12.0); Neutrophils # (auto) 3.3 uL; Neutrophils % (auto) 60.7 % (37.0-80.0); Platelet Count (auto) 253 10^3/uL (140-450); Red Cell Distribution Width 14.9 % (11.8-14.3); White Blood Cell 5.5 10^3/uL (4.4-10.8)
[2019-01-31 06:39] LABS: Calcium 8.1 mg/dL (8.5-10.1); Potassium 5.4 mmol/L (3.5-5.1)
[2019-01-31 06:48] LABS: BUN/Creatinine Ratio 7.4
[2019-01-31] MEDS: hydrALAZINE HCL 25 MG TAB PO PRN ×3 (06:49→21:53)
[2019-01-31] MEDS: ACCU-CHEK COMFORT CURVE STRIP VI SCH ×4 (06:55→21:49)
[2019-01-31] MEDS: InsuLIN REG 1unit/0.01ml Soln (100units/ml) SC SCH ×4 (06:56→21:50)
[2019-01-31] MEDS: CALCIUM ACETATE 667 MG CAP PO SCH ×3 (08:21→17:04)
[2019-01-31] MEDS: SEVELAMER 800 MG TAB PO SCH ×3 (08:21→17:05)
[2019-01-31 09:00] VITALS: BP 155/77
[2019-01-31] MEDS: APIXABAN 2.5 MG TAB PO SCH ×2 (10:03→21:48)
[2019-01-31] MEDS: CARVEDILOL 3.125 MG TAB PO SCH ×2 (10:03→21:53)
[2019-01-31] MEDS: PANTOPRAZOLE 40 MG TAB PO SCH (10:04)
[2019-01-31] MEDS: CLOPIDOGREL BISULFATE 75 MG TAB PO SCH (10:04)
[2019-01-31] MEDS: LISINOPRIL 20 MG TAB PO SCH (10:05)
[2019-01-31 13:00] VITALS: BP 153/76
[2019-01-31] MEDS: GABAPENTIN 300 MG CAP PO SCH ×2 (14:37→21:49)
[2019-01-31] MEDS: ACETAMINOPHEN 500 MG TAB PO PRN ×2 (14:42→23:45)
[2019-01-31 17:41] VITALS: BP 189/181
[2019-01-31] MEDS: ATORVASTATIN 20 MG TAB PO SCH (21:49)
[2019-01-31 22:00] VITALS: BP 155/78
[2019-02-01 05:00] VITALS: BP 147/74
[2019-02-01] MEDS: GABAPENTIN 300 MG CAP PO SCH (05:42)
[2019-02-01] MEDS: ACETAMINOPHEN 500 MG TAB PO PRN ×2 (05:43→18:38)
[2019-02-01] MEDS: InsuLIN REG 1unit/0.01ml Soln (100units/ml) SC SCH ×4 (07:00→21:50)
[2019-02-01] MEDS: ACCU-CHEK COMFORT CURVE STRIP VI SCH ×4 (07:28→21:43)
[2019-02-01] MEDS: SEVELAMER 800 MG TAB PO SCH ×3 (08:00→17:20)
[2019-02-01] MEDS: CALCIUM ACETATE 667 MG CAP PO SCH ×3 (08:00→17:20)
[2019-02-01] MEDS ORDERED: SODIUM CHL 0.9% 1000 ML BAG XX ONE (08:30)
[2019-02-01 09:00] VITALS: BP 147/78
[2019-02-01] MEDS: APIXABAN 2.5 MG TAB PO SCH ×2 (10:00→21:42)
[2019-02-01] MEDS: CARVEDILOL 3.125 MG TAB PO SCH ×2 (10:00→21:42)
[2019-02-01] MEDS: CLOPIDOGREL BISULFATE 75 MG TAB PO SCH (10:00)
[2019-02-01 13:00] VITALS: BP 129/57
[2019-02-01] MEDS ORDERED: IOHEXOL 350 MG/ML 100ML IJ ONE (13:17)
[2019-02-01] MEDS ORDERED: LIDOCAINE 2%HCL (LOCAL ANESTH.) INJ 20ML MDV ONE (13:17)
[2019-02-01] MEDS ORDERED: ANGIOMAX 250 MG VIAL IV ONE (13:20)
[2019-02-01] MEDS ORDERED: fentaNYL CITRATE 100 MCG/2 ML VL ONE (13:20)
[2019-02-01] MEDS ORDERED: IODIXANOL 320MG/ML 100ML BTL IV ONE (13:21)
[2019-02-01] MEDS ORDERED: MIDAZOLAM HCL 1MG/1ML-2 ML VIAL ONE (13:21)
[2019-02-01] MEDS ORDERED: SODIUM CHL 0.9% 50 ML ONE (13:21)
[2019-02-01] MEDS: PANTOPRAZOLE 40 MG TAB PO SCH (15:41)
[2019-02-01] MEDS: LISINOPRIL 20 MG TAB PO SCH (15:42)
[2019-02-01 17:05] VITALS: BP 149/86
[2019-02-01] MEDS ORDERED: GABAPENTIN 100 MG CAP PO SCH (18:00)
[2019-02-01] MEDS: ATORVASTATIN 20 MG TAB PO SCH (21:43)
[2019-02-01 22:38] VITALS: BP 161/78
[2019-02-02 05:12] VITALS: BP 140/72
[2019-02-02] MEDS: ACCU-CHEK COMFORT CURVE STRIP VI SCH (06:42)
[2019-02-02] MEDS: InsuLIN REG 1unit/0.01ml Soln (100units/ml) SC SCH (06:43)
[2019-02-02] MEDS: CALCIUM ACETATE 667 MG CAP PO SCH (08:06)
[2019-02-02] MEDS: SEVELAMER 800 MG TAB PO SCH (08:06)
[2019-02-02 09:11] VITALS: BP 135/71
[2019-02-02] MEDS: CLOPIDOGREL BISULFATE 75 MG TAB PO SCH (09:58)
[2019-02-02] MEDS: APIXABAN 2.5 MG TAB PO SCH (09:58)
[2019-02-02] MEDS: LISINOPRIL 20 MG TAB PO SCH (09:59)
[2019-02-02] MEDS: PANTOPRAZOLE 40 MG TAB PO SCH (09:59)
[2019-02-02] MEDS: CARVEDILOL 3.125 MG TAB PO SCH (10:00)
[2019-02-02 10:28] VITALS: BP 135/71
[2019-02-02 13:05] VITALS: BP 134/53
== END 2019-02-02 11:45 | disposition home or self-care (01) | DRG 246 ==
LOC: ER 22:55 → TELE 01-30 08:24 → MERGE 01-30 08:24 → TELE-CENTR 01-30 20:35
PROVIDERS: ADMIT Nurse Practitioner Family; ATTEND Family Medicine
PROC: 027034Z Dilation of Coronary Artery, One Artery with Drug-eluting Intraluminal Device, Percutaneous Approach (ICD-10-PCS; principal; 2019-01-31)
PROC: 4A023N7 Measurement of Cardiac Sampling and Pressure, Left Heart, Percutaneous Approach (ICD-10-PCS; 2019-01-31)
PROC: B2111ZZ Fluoroscopy of Multiple Coronary Arteries using Low Osmolar Contrast (ICD-10-PCS; 2019-01-31)
PROC: 5A1D70Z Performance of Urinary Filtration, Intermittent, Less than 6 Hours Per Day (ICD-10-PCS; 2019-02-01)
DX: I25.10 Atherosclerotic heart disease of native coronary artery without angina pectoris (principal); N18.6 End stage renal disease; I50.43 Acute on chronic combined systolic (congestive) and diastolic (congestive) heart failure; E87.1 Hypo-osmolality and hyponatremia; I13.2 Hypertensive heart and chronic kidney disease with heart failure and with stage 5 chronic kidney disease, or end stage renal disease; M31.9 Necrotizing vasculopathy, unspecified; E11.40 Type 2 diabetes mellitus with diabetic neuropathy, unspecified; E11.21 Type 2 diabetes mellitus with diabetic nephropathy; E11.69 Type 2 diabetes mellitus with other specified complication; E87.5 Hyperkalemia; R74.8 Abnormal levels of other serum enzymes; E78.5 Hyperlipidemia, unspecified; E11.65 Type 2 diabetes mellitus with hyperglycemia; E11.22 Type 2 diabetes mellitus with diabetic chronic kidney disease; E78.00 Pure hypercholesterolemia, unspecified; Z99.2 Dependence on renal dialysis; Z79.4 Long term (current) use of insulin; I25.2 Old myocardial infarction
CPT/HCPCS: 36415; 71046; 80048; 80053; 82962; 83036; 83735; 83880; 84443; 84484; 85025; 85610; 85652; 85730; 90935; 93926; 93971; 96374; 96375; 99152; A6257; C1874; G0378; J1815; J2250; J2405; Q9967

== ENCOUNTER → 2019-05-14 | Outpatient (CLI) | payer OTHER, MEDICAID ==
[~2019-05-14] MED LIST changes: +APIX2.5T PO; +ATO40T PO; +CARV12.544 PO; +CLOP75TA28 PO; +FURO1TAB32 PO; +ISOS30TA4 PO; +LISI-646 PO; +PANT40TA2 PO
== END | disposition home or self-care (01) ==
LOC: Rad HDHVI 12:45
PROVIDERS: ATTEND Internal Medicine Cardiovascular Disease
DX: I08.3 Combined rheumatic disorders of mitral, aortic and tricuspid valves (principal); I12.0 Hypertensive chronic kidney disease with stage 5 chronic kidney disease or end stage renal disease; E11.22 Type 2 diabetes mellitus with diabetic chronic kidney disease; N18.6 End stage renal disease; E11.40 Type 2 diabetes mellitus with diabetic neuropathy, unspecified
CPT/HCPCS: 93306